=== PATIENT | female | born 1990 | race Asian ===

== ENCOUNTER → 2017-12-31 | Outpatient (CLI) | payer OTHER, MEDICAID | LOC: FIMAGING 12:38 | PROVIDERS: ATTEND Obstetrics & Gynecology | DX: O26.02 Excessive weight gain in pregnancy, second trimester (principal); O09.292 Supervision of pregnancy with other poor reproductive or obstetric history, second trimester; Z3A.19 19 weeks gestation of pregnancy ==

== ENCOUNTER → 2018-01-19 | Outpatient (CLI) | payer OTHER, MEDICAID | LOC: FIMAGING 13:38 | PROVIDERS: ATTEND Obstetrics & Gynecology | DX: O09.292 Supervision of pregnancy with other poor reproductive or obstetric history, second trimester (principal); Z3A.22 22 weeks gestation of pregnancy ==

== ENCOUNTER → 2018-02-18 | Outpatient (CLI) | payer OTHER, MEDICAID | LOC: FIMAGING 15:02 | PROVIDERS: ATTEND Obstetrics & Gynecology | DX: Z34.83 Encounter for supervision of other normal pregnancy, third trimester (principal); Z3A.27 27 weeks gestation of pregnancy ==

== ENCOUNTER 2018-03-07 12:10 | Emergency (ER) | payer OTHER, MEDICAID ==
[2018-03-07] MEDS ORDERED: NS 1,000 ML IV ONE (12:30)
[2018-03-07] MEDS ORDERED: MAGNESIUM SULF 2 GM/WATER 50 ML IV ONE (12:34)
--- NOTE | 2018-03-07 13:03 | EDPHY ---
H & P Stated Complaint: High BP x 2 days, feeling decreased movement today Time Seen by Provider: 03/07/18 12:18 HPI/ROS: CHIEF COMPLAINT: Headache, high blood pressure, decreased movement HISTORY OF PRESENT ILLNESS: This is a 27-year-old female 29 weeks presenting with reports of a headache for the last 2 days and noticing her blood pressure has been high for the last 2 days. Patient has a history of preeclampsia with a delivery at 38 weeks gestation with her 1st . She reports this has been fine with no high blood pressure and no indication for preeclampsia. She reports decreased movement for the last 2 nights. She denies any leakage of fluid, vaginal bleeding, abdominal discomfort, cramping, or back pain. No urinary tract infection symptoms. Reports some shortness of breath when she is lying flat. No palpitations. Patient did have vomiting yesterday x1. No visual complaints. Patient's OBGYN is Dr. Albaro IBRAHIM from [facility]. She is scheduled to deliver at [facility] REVIEW OF SYSTEMS: A comprehensive 10 system review of systems was reviewed and is otherwise negative aside from elements mentioned in the history of present illness and medical decision making. PAST MEDICAL HISTORY: Preeclampsia with her 1st . SOCIAL HISTORY: Here with her aunt. is currently at work. VITAL SIGNS Reviewed by me. Initial blood pressure 180/109. Manual blood pressure 170/110. GENERAL: Overweight individual, well-developed well-nourished, no respiratory distress. HEENT: Atraumatic. Eyes: No icterus, no injection. Mouth: moist mucous membranes. No erythema or lesions. Neck: supple with no adenopathy. LUNGS: Clear to auscultation bilaterally, no wheezes, rhonchi or rales. CARDIAC: Regular rate and rhythm, no rubs, murmurs or gallops. ABDOMEN: Soft, gravid uterus which is nontender, nondistended, bowel sounds normal. BACK: No CVA tenderness. EXTREMITIES: No trauma. No pitting edema. Range of motion is normal throughout]. NEURO: Alert and oriented, grossly nonfocal. SKIN: Warm and dry, no rash. PSYCHIATRIC: Normal mentation, no agitation. - Personal History LMP (Females 10-55): EDC: 08/12/17 Current Tetanus Diphtheria and Acellular Pertussis (TDAP): Yes Tetanus Vaccine Date: 10/04/15 - Medical/Surgical History Hx Asthma: No Hx Chronic Respiratory Disease: No Hx Diabetes: No Hx Cardiac Disease: No Hx Renal Disease: No Hx Cirrhosis: No Hx Alcoholism: No Hx HIV/AIDS: No Hx Splenectomy or Spleen Trauma: No Other PMH: h/o migraines, wisdom teeth removal 2012, pre-eclapsia - Social History Smoking Status: Never smoked Constitutional: Initial Vital Signs Temperature (C) 36.6 C 03/07/18 12:15 Heart Rate 74 03/07/18 12:15 Respiratory Rate 16 03/07/18 12:15 Blood Pressure 180/109 H 03/07/18 12:15 O2 Sat (%) 96 03/07/18 12:15 O2 Delivery Mode Room Air Allergies/Adverse Reactions: No Known Allergies Allergy (Verified 03/07/18 12:15) Home Medications: Medication Instructions Recorded Aspirin 03/07/18 Medical Decision Making ED Course/Re-evaluation: Patient was seen by myself immediately on arrival. Will taking the history a bedside ultrasound was performed. Single living IUP is noted with some movement. Due to the patient's body habitus and the technical difficulties of this ultrasound machine, cardiac activity was difficult to appreciate. I was unable to obtain a rate although I did see brief glimpse is of cardiac activity. Patient received 2 g of magnesium for her significant hypertension. heart tones were dopplerable at a rate of 148. I notified [facility] that this patient may potentially need to be transferred. I placed a call to Dr. Albaro Lo to discuss the case further. Case discussed with [facility] O[facility] nurse practitioner Tasneem Patel, on-call for Dr. Albaro Lo. Advised transfer to the [facility] given the patient's young age, early gestational age, and significantly elevated high blood pressures. At this point liver function tests and chemistries and PIH panel is not available. Course was then discussed with Dr. Torres, fellow for Maternal Health at the [facility]. She agrees that the patient should be transferred emergently to the [facility] given her significantly elevated blood pressures. At this point the patient's blood pressure is 163/113 after receiving 2 g of magnesium. Patient received labetalol 20 mg IV push prior to transfer. She was transferred emergently by ALS ambulance to the [facility] as a direct admit to Labor and delivery. Note: Patient's LFTs are normal as is her CBC and platelets of 228. Differential Diagnosis: Differential diagnoses for the patient's symptom complex was considered including but not limited to preeclampsia, hypertension of , HELLP syndrome, distress, need for emergent delivery. Consult/Admit Bed Type: Tasneem Carrasco for [facility] [facility] [place] DIEM, Dr Torres, of [place] Critical Care Time: Critical care time spent by me, Dr. Barrow exclusively with this patient was 45 minutes, exclusive of PA time and exclusive of procedures. The organ system at risk was cardiovascular, uterine, and I gave antihypertensives, consulted with OBGYN, and arrange transfer to high risk Maternal- specialist to prevent worsening of the patients condition. Critical care time included obtaining history, performing a physical exam, bedside monitoring of interventions, collecting and interpreting tests and discussion with consultants but not including time spent performing procedures. - Data Points Laboratory Results: 03/07/18 03/07/18 14:00 13:45 POC Sodium 141 mEq/L mEq/L (135-145) POC Potassium 3.3 mEq/L mEq/L (3.3-5.0) POC Chloride 106.0 mEq/L mEq/L (97-110) POC Total CO2 21 mEq/L L mEq/L (22-31) POC BUN 8 mg/dL mg/dL (7-23) POC Creatinine 0.4 mg/dL L mg/dL (0.6-1.0) POC Glucose 105 mg/dL H mg/dL (70-100) POC Calcium 9.1 mg/dL mg/dL (8.5-10.4) POC Total Bilirubin 0.5 mg/dL mg/dL (0.1-1.4) POC GGT < 5 IU/L L IU/L (5-65) POC AST 19 IU/L IU/L (14-46) POC ALT 11 IU/L IU/L (9-52) POC Alk Phosphatase 92 IU/L IU/L (38-126) POC Total Protein 6.5 g/dL g/dL (6.3-8.2) POC Albumin 2.5 g/dL L g/dL (3.5-5.0) POC Amylase 45 IU/L IU/L (30-110) Medications Given: Discontinued Medications Magnesium Sulfate (Magnesium Sulf 2 Gm (Premix)) 50 mls @ 50 mls/hr IV EDNOW ONE Stop: 03/07/18 13:33 Last Admin: 03/07/18 12:42 Dose: 50 mls Sodium Chloride (Ns) 1,000 mls @ 0 mls/hr IV ONCE ONE PRN Reason: Wide Open Stop: 03/07/18 12:31 Last Admin: 03/07/18 12:50 Dose: 1,000 mls Labetalol HCl (Trandate Injection) 10 mg IVP ONCE ONE Stop: 03/07/18 13:19 Last Admin: 03/07/18 13:48 Dose: Not Given Labetalol HCl (Trandate Injection) 20 mg IVP EDNOW ONE Stop: 03/07/18 13:22 Last Admin: 03/07/18 13:22 Dose: 20 mg Point of Care Test Results: CBC CBC Collection Date 03/07/18 CBC Collection Time 12:41 WBC 11.8 RBC 4.43 HGB 11.7 HCT 34.9 PLT 277 Neut # 9.5 Neut 80.6 LYMPH # 1.9 LYMPH 16.1 Other WBC # 0.4 Other WBC 3.3 MCV 78.8 Chemistry 03/07/18 03/07/18 14:00 13:45 POC Sodium 141 mEq/L mEq/L (135-145) POC Potassium 3.3 mEq/L mEq/L (3.3-5.0) POC Chloride 106.0 mEq/L mEq/L (97-110) POC Total CO2 21 mEq/L L mEq/L (22-31) POC BUN 8 mg/dL mg/dL (7-23) POC Creatinine 0.4 mg/dL L mg/dL (0.6-1.0) POC Glucose 105 mg/dL H mg/dL (70-100) POC Calcium 9.1 mg/dL mg/dL (8.5-10.4) POC Total Bilirubin 0.5 mg/dL mg/dL (0.1-1.4) POC GGT < 5 IU/L L IU/L (5-65) POC AST 19 IU/L IU/L (14-46) POC ALT 11 IU/L IU/L (9-52) POC Alk Phosphatase 92 IU/L IU/L (38-126) POC Total Protein 6.5 g/dL g/dL (6.3-8.2) POC Albumin 2.5 g/dL L g/dL (3.5-5.0) POC Amylase 45 IU/L IU/L (30-110) Urine Dip Collection Date 03/07/18 Collection Time 12:21 Specific [place] (1.002-1.030) 1.020 PH (5.0-7.5) 6.0 Leukocytes (Negative) Trace Nitrites (Negative) Negative Protein (Negative) 1+ Glucose (Negative) Negative Ketones (Negative) Negative Urobilnogen (0.2-1.0 EU) 0.2 Bilirubin (Negative) Negative Blood (Negative) Negative Departure - Departure Disposition: Acute [facility] Not [facility] Clinical Impression: Hypertension affecting in third trimester Pre-eclampsia Qualifiers: Trimester: third trimester Qualified Code(s): O14.93 - Unspecified pre- eclampsia, third trimester Condition: Serious Referrals: NONE *PRIMARY CARE P,. [Primary Care Provider] - As per Instructions
[2018-03-07] MEDS ORDERED: LABETALOL HCL 5 MG/ML 20 ML MDV IVP ONE ×2 (13:18→13:21)
[2018-03-07] MEDS ORDERED: LABETALOL HCL 5 MG/ML 20 ML MDV ONE (13:19)
[2018-03-07 13:59] VITALS: BP 140/107
== END 2018-03-07 13:30 | disposition short-term general hospital (02) ==
LOC: CED 12:10
DX: O16.3 Unspecified maternal hypertension, third trimester (principal); O14.93 Unspecified pre-eclampsia, third trimester; O09.293 Supervision of pregnancy with other poor reproductive or obstetric history, third trimester; Z3A.29 29 weeks gestation of pregnancy
CPT/HCPCS: 80048-PO; 80076-PO; 82150-PO; 96365; J3475

== ENCOUNTER → 2018-04-15 | Outpatient (CLI) | payer OTHER, MEDICAID | LOC: FIMAGING 16:05 | PROVIDERS: ATTEND Obstetrics & Gynecology | DX: M79.604 Pain in right leg (principal) ==

== ENCOUNTER → 2018-04-23 | Outpatient (CLI) | payer OTHER, MEDICAID | LOC: FIMAGING 17:00 | PROVIDERS: ATTEND Obstetrics & Gynecology | DX: R10.2 Pelvic and perineal pain (principal); R93.5 Abnormal findings on diagnostic imaging of other abdominal regions, including retroperitoneum ==